=== PATIENT | female | born 1950 | race Caucasian/White ===

== ENCOUNTER 2017-06-17 08:43 | Emergency (ER) | payer MEDICARE, SELFPAY ==
[2017-06-17 08:50] VITALS: BP 125/74; PULSE 80; RESP 18; TEMP 36.5; O2SAT 95; BMI 30.2
--- NOTE | 2017-06-17 09:04 | CT_ITS ---
CT abdomen pelvis wo con COMPARISON: CT scan the abdomen 11/11/2015 HISTORY: Right flank pain TECHNIQUE: Multiaxial scans obtained from hemidiaphragms to the pelvic floor and were performed without IV or oral contrast. Sagittal and coronal reformats were evaluated as well. FINDINGS: The lower lung [place] are clear. Liver spleen stomach pancreas and gallbladder appear grossly normal. There are couple of calcifications within the spleen likely granulomas. The adrenal glands are normal. The kidneys are normal in size and there are no calculi and is no obstructive uropathy of either kidney. There is prominent diffuse arteriosclerotic calcification of the abdominal aorta and proximal iliac arteries but there is no aneurysm. Small bowel appears normal. The appendix is normal caliber and retrocecal in location. There is moderate stool in ascending transverse and proximal descending colon. There is prominent diverticulosis of the sigmoid colon without evidence of diverticulitis. The uterus is small and in the midline. Urinary bladder is grossly normal. There is no free fluid in the pelvis. There are mild degenerative changes of the thoracolumbar junction. IMPRESSION: 1. No evidence of renal or ureteral calculi 2. Mild diffuse diverticulosis of sigmoid colon without diverticulitis
--- NOTE | 2017-06-17 09:12 | HMH.EDABDPAI ---
ED Disposition Clinical Impression: Back pain Qualifiers: Back pain location: low back pain Chronicity: unspecified Back pain laterality: right Sciatica presence: without sciatica Qualified Code(s): M54.5 - Low back pain UTI (urinary tract infection) Qualifiers: Urinary tract infection type: site unspecified Hematuria presence: with hematuria Qualified Code(s): N39.0 - Urinary tract infection, site not specified; R31.9 - Hematuria, unspecified Disposition: Home, Self-Care Condition on Discharge: Good Instructions: DI for Low Back Pain Prescriptions: Ketorolac Tromethamine [Toradol 10mg tablet] 10 mg PO Q6H 5 Days #20 tab Nitrofurantoin Monohyd/M-Cryst [Macrobid 100 mg Capsule] 100 mg PO BID #10 cap Referrals: Grace Lawrnece [Primary Care Provider] - - Critical Care Critical Care Time: No Attestation: On , the high probability of a clinically significant, sudden or life threatening deterioration of the following system(s) required my full and direct attention, intervention and personal management. The time I documented below is in addition to time spent performing reported procedures but includes the following listed in this critical care notation. Medical Decision Making - Medical Records Medical records reviewed: Yes: I reviewed the patient's medical records. - Waldemar Inquiry Pt receiving controlled substance: No Waldemar was queried for this patient: No Vital Signs: 06/17/17 08:50 Temperature 97.7 F Temperature Source Oral Pulse Rate [Right Radial] 80 Respiratory Rate 18 Blood Pressure [Right Arm] 125/74 Blood Pressure Mean [Right Arm] 91 02 Sat by Pulse Oximetry 95 Oxygen Delivery Method Room Air - Lab Data Lab results reviewed: Yes: I reviewed the patient's lab results. Lab Results 06/17/17 08:59: Urine Color Yellow, Urine Appearance Clear, Urine pH 5.5, Ur Specific [place] >= 1.030, Urine Protein Negative, Urine Glucose (UA) Negative, Urine Ketones Negative, Urine Blood 1+, Urine Nitrate Negative, Urine Bilirubin Negative, Urine Urobilinogen 0.2, Ur Leukocyte Esterase Negative, Urine RBC None, Urine WBC 3-5, Ur Squamous Epith Cells 5-10, Urine Bacteria 1+ 06/17/17 09:15: WBC 6.4, RBC 4.53, Hgb 12.8, Hct 39.9, MCV 88.2, MCH 28.3, MCHC 32.1, RDW 14.4, Plt Count 266, MPV 6.6 L, Neut % (Auto) 62.3, Lymph % (Auto) 25.9, [place] % (Auto) 5.8, Eos % (Auto) 5.3, Baso % (Auto) 0.7, Neut # (Auto) 4.0, Lymph # (Auto) 1.6, [place] # (Auto) 0.4, Eos # (Auto) 0.3, Baso # (Auto) 0.1 06/17/17 09:15: Sodium 138, Potassium 4.0, Chloride 103, Carbon Dioxide 27, Anion Gap 12.0, BUN 26 H, Creatinine 1.24 H, Estimated Creat Clear 52, Estimated GFR 43 L, Est GFR ( Amer) 52 L, Glucose 130 H, Calcium 8.8, Total Bilirubin 0.3, AST 13 L, ALT 25, Alkaline Phosphatase 125 H, Total Protein 7.9, Albumin 3.6, Globulin 4.3 H, Albumin/Globulin Ratio 0.8 L Result diagrams: 06/17/17 09:15 06/17/17 09:15 Orders (Tests/Meds): ED MEDICATIONS Discontinued Medications Generic Name Dose Route Start Last Admin Trade Name Freq PRN Reason Stop Dose Admin Sodium Chloride 1,000 mls @ 999 mls/hr 06/17/17 09:15 06/17/17 09:12 Sod Chlor 0.9% 1000ml Bag IV 06/17/17 10:15 999 mls/hr .Q1H1M TARA Administration Ketorolac Tromethamine 30 mg 06/17/17 11:13 06/17/17 11:15 Toradol 30mg/Ml Vial IV 06/17/17 11:14 30 mg ONCE ONE Administration Morphine Sulfate 2 mg 06/17/17 09:00 06/17/17 09:11 Morphine 2mg/Ml Syringe IV 06/17/17 09:01 2 mg ONCE ONE Administration Ondansetron HCl 4 mg 06/17/17 09:10 06/17/17 09:11 Zofran 4mg/2ml Vial IV 06/17/17 09:11 4 mg ONCE ONE Administration - CT Data CT Scan: Abdomen (no evidence kidney stone or lesion) Time Received: 12:[address] Reviewed: Yes: I have viewed the radiologist's interpretation Preliminary Findings: Normal/NAD Abdominal Pain HPI - General Chief Complaint: Back Pain/Injury Stated Complaint: Right side back pain Time Seen by
[2017-06-17 09:24] LABS: Microscopic, Urine URINE MICROSCOPIC (MICROSCOPIC)
[2017-06-17 09:25] LABS: Basophils # 0.1 K/mm3 (0-0.2); Basophils % 0.7 % (0.1-2.0); Eosinophils # 0.3 K/mm3 (0.0-0.4); Eosinophils % 5.3 % (0.1-12.0); Hematocrit 39.9 % (37.0-47.0); Hemoglobin 12.8 g/dL (12.2-16.2); Lymphocytes # 1.6 K/mm3 (0.7-4.5); Lymphocytes % 25.9 K/mm3 (10-50); Mean Corpuscular HGB Conc 32.1 g/dL (31.8-35.4); Mean Corpuscular Hemoglobin 28.3 pg (27.0-31.2); Mean Corpuscular Volume 88.2 fl (81-99); Mean Platelet Volume 6.6 fl (7.4-10.4); Monocytes # 0.4 K/mm3 (0.1-1.0); Monocytes % 5.8 % (1.7-9.3); Neutrophils % 62.3 % (37.0-80.0); Platelet Count 266 K/mm3 (142-424); Red Blood Count 4.53 M/mm3 (4.20-5.40); Red Cell Distribution Width 14.4 % (11.5-17.5); White Blood Count 6.4 K/mm3 (4.8-10.8)
[2017-06-17 09:26] LABS: Appearance,Urine CLEAR (Clear); Bilirubin,Urine Negative (Negative); Blood, Urine 1+ (Negative); Color,Urine YELLOW (Yellow); Glucose,Urine (UA) Negative (Negative); Ketones,Urine Negative (Negative); Leukocyte Esterase,Urine Negative (Negative); Nitrate,Urine Negative (Negative); PH,Urine 5.5 (5.0-8.5); Protein,Urine Negative (Negative); Specific Gravity, Urine >= 1.030 (1.005-1.030); Urobilinogen,Urine 0.2 EU/dl (0.2)
[2017-06-17 09:37] LABS: Bacteria,Urine 1+ /lpf
[2017-06-17 09:44] LABS: Alanine Aminotransferase 25 U/L (12-78); Albumin Level 3.6 gm/dL (3.4-5.0); Albumin/Globulin Ratio 0.8 (1.1-1.8); Alkaline Phosphatase 125 U/L (46-116); Aspartate Amino Transferase 13 U/L (15-37); Bilirubin,Total 0.3 mg/dL (0.2-1.0); Blood Urea Nitrogen 26 mg/dL (7-18); Calcium 8.8 mg/dL (8.5-10.1); Carbon Dioxide 27 mmol/L (21.0-32.0); Chloride 103 mmol/L (98-107); Creatinine Clearance Estimated 52 mL/min (0-300); Creatinine,Serum 1.24 mg/dL (0.55-1.02); Estimated Glomerular Filt Rate 43 ml/min (>60); GFR (African American) 52 ML/MIN (>60); Globulin 4.3 gm/dl (1.3-3.2); Glucose 130 mg/dL (74-106); Sodium 138 mmol/L (136-145); Total Protein,Serum 7.9 gm/dL (6.4-8.2)
[2017-06-17 12:30] VITALS: BP 147/76; PULSE 72; RESP 16; TEMP 36.9; O2SAT 99
== END 2017-06-17 12:33 | disposition home or self-care (01) ==
PROVIDERS: Emergency Provider Family Medicine; Family Provider Physician Assistant; PCP Physician Assistant
DX: M54.5 Low back pain (principal); N39.0 Urinary tract infection, site not specified; E11.9 Type 2 diabetes mellitus without complications; Z96.651 Presence of right artificial knee joint; Z79.899 Other long term (current) drug therapy
CPT/HCPCS: 74176; 80053; 81001; 85025; 96365; 96374; 96375; 99283; J2405

== ENCOUNTER → 2017-07-15 10:24 | Outpatient (CLI) | payer MEDICARE, SELFPAY ==
--- NOTE | 2017-07-15 10:29 | XR_ITS ---
XR chest 2V INDICATION: Cough COMPARISON: PA and lateral chest 07/17/2016 FINDINGS: The cardiovascular structures are unremarkable. No mediastinal shift or hilar mass is evident. The lungs are well expanded and clear bilaterally. The costophrenic sulci are sharp. No significant bony anomalies are apparent. There are mild degenerative changes lower thoracic spine. IMPRESSION: Negative chest.
== END ==
PROVIDERS: PCP Physician Assistant; Visit Provider Physician Assistant
DX: R05 Cough (principal)
CPT/HCPCS: 71046

== ENCOUNTER → 2018-02-15 10:05 | Outpatient (CLI) | payer MEDICARE, SELFPAY ==
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
== END ==
PROVIDERS: PCP Physician Assistant; Visit Provider Physician Assistant
DX: R10.84 Generalized abdominal pain (principal); R11.0 Nausea; R19.7 Diarrhea, unspecified; Z87.19 Personal history of other diseases of the digestive system
CPT/HCPCS: 74176

== ENCOUNTER 2019-10-04 21:59 | Emergency (ER) | payer MEDICARE, SELFPAY ==
[2019-10-04 22:00] VITALS: BP 132/74; PULSE 100; RESP 16; TEMP 36.8; O2SAT 98
[2019-10-04 22:08] VITALS: BMI 28.2
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
[2019-10-04 22:17] LABS: Microscopic, Urine URINE MICROSCOPIC (MICROSCOPIC)
[2019-10-04 22:22] LABS: Appearance,Urine CLEAR (Clear); Bilirubin,Urine Negative (Negative); Blood, Urine 1+ (Negative); Color,Urine YELLOW (Yellow); Glucose,Urine (UA) Negative (Negative); Ketones,Urine TRACE (Negative); Leukocyte Esterase,Urine Negative (Negative); Nitrate,Urine Negative (Negative); PH,Urine 5.5 (5.0-8.5); Protein,Urine 2+ (Negative); Specific Gravity, Urine >= 1.030 (1.005-1.030); Urobilinogen,Urine 0.2 EU/dl (0.2)
[2019-10-04 22:22] LABS: Basophils # 0.1 K/mm3 (0-0.2); Basophils % 0.5 % (0.1-2.0); Chloride 106 mmol/L (98-107); Eosinophils # 0.4 K/mm3 (0.0-0.4); Hematocrit 36.3 % (37.0-47.0); Hemoglobin 12.5 g/dL (12.2-16.2); Lymphocytes # 1.9 K/mm3 (0.7-4.5); Lymphocytes % 22.2 % (10-50); Mean Corpuscular HGB Conc 34.4 g/dL (31.8-35.4); Mean Corpuscular Hemoglobin 28.7 pg (27.0-31.2); Mean Corpuscular Volume 83.4 fl (81-99); Monocytes # 0.4 K/mm3 (0.1-1.0); Monocytes % 4.6 % (1.7-9.3); Neutrophils % 68.6 % (37.0-80.0); Platelet Count 265 K/mm3 (142-424); Potassium 4.2 mmoL/L (3.5-5.1); Red Blood Count 4.35 M/mm3 (4.20-5.40); Red Cell Distribution Width 14.8 % (11.5-17.5); Sodium 137 mmol/L (136-145); White Blood Count 8.7 K/mm3 (4.8-10.8)
[2019-10-04 22:25] LABS: Alanine Aminotransferase 32 U/L (12-78); Albumin Level 4.4 g/dl (3.5-5.0); Albumin/Globulin Ratio 1.4 (1.1-1.8); Alkaline Phosphatase 130 U/L (38-126); Anion Gap 11.2 mEq/L (5-15); Aspartate Amino Transferase 34 U/L (14-36); Bilirubin,Total 0.4 mg/dl (0.2-1.3); Blood Urea Nitrogen 27 mg/dl (7-17); Calcium 9.7 mg/dl (8.4-10.2); Carbon Dioxide 24 mmol/L (22.0-30.0); Creatinine Clearance Estimated 55 mL/min (50-200); Estimated Glomerular Filt Rate 44 ml/min (>60); GFR (African American) 54 ML/MIN (>60); Globulin 3.2 g/dL (1.3-3.2); Glucose 191 mg/dl (74-100); Total Protein,Serum 7.6 g/dl (6.3-8.2)
[2019-10-04 22:30] VITALS: BP 134/88; PULSE 105; RESP 18; O2SAT 98
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
[2019-10-04 23:01] LABS: Bacteria,Urine Trace /lpf; WBC,Urine Occasional #/hpf (0-3)
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
[2019-10-04 23:53] VITALS: BP 124/58; PULSE 81; RESP 15; O2SAT 99
[2019-10-05 00:30] VITALS: BP 128/56; PULSE 82; RESP 15; TEMP 36.8; O2SAT 99
[2019-11-02 09:45] LABS: POC Glucose,Bedside 182 (70-110)
== END 2019-10-05 00:37 | disposition home or self-care (01) ==
PROVIDERS: Emergency Provider Emergency Medicine
DX: S00.03XA Contusion of scalp, initial encounter (principal); S81.811A Laceration without foreign body, right lower leg, initial encounter; V37.0XXA Driver of three-wheeled motor vehicle injured in collision with fixed or stationary object in nontraffic accident, initial encounter; Y92.89 Other specified places as the place of occurrence of the external cause; Z23 Encounter for immunization; N28.9 Disorder of kidney and ureter, unspecified; Z88.0 Allergy status to penicillin; Z88.2 Allergy status to sulfonamides; Z88.5 Allergy status to narcotic agent
CPT/HCPCS: 12001; 70450; 70486; 71045; 71250; 72125; 72170; 73590; 74176; 80053; 81001; 82962; 85025; 85730; 90471; 90714; 96365; 96366; 96372; 96374; 96375; 99282

== ENCOUNTER → 2020-07-16 10:42 | Outpatient (CLI) | payer MEDICARE, SELFPAY ==
[2020-07-16 12:00] LABS: Coronavirus 19 IgG Antibody Positive (Negative); Coronavirus 19 IgM Antibody Negative (Negative)
== END ==
PROVIDERS: Visit Provider Internal Medicine Gastroenterology
DX: Z01.812 Encounter for preprocedural laboratory examination (principal); Z20.822 Contact with and (suspected) exposure to COVID-19; Z12.11 Encounter for screening for malignant neoplasm of colon
CPT/HCPCS: 36415; 86328

== ENCOUNTER 2020-07-18 10:26 | Day surgery (SDC) | payer MEDICARE, SELFPAY ==
[2020-07-15 09:36] VITALS: BMI 30.2
[2020-07-18] VITALS (7 sets, daily range): BP systolic 112–153; BP diastolic 54–94; PULSE 58–74; RESP 16–18; TEMP 36.1–36.4; O2SAT 90–100
--- NOTE | 2020-07-18 13:05 | HMH.PROC ---
[facility] Procedure Note Procedure Note:: Colonoscopy Procedure Report: Colonoscopy with cold snare polypectomy Endoscopist: Wallace Remy II, MD Referring physician: Penny Arevalo MD Date of Procedure: July 18, 2020 Equipment: Olympus 190 variable stiffness pediatric colonoscope Sedation: MAC sedation Indication: Mrs. Shaffer is a 69-year-old female who is here for diagnostic colonoscopy secondary to a positive Cologuard. She did have a colonoscopy with md more than 10 years ago. She reports no abdominal pain, weight loss, change in her bowel habits or rectal bleeding. She reports no family history of colon cancer. Procedure: Prior to the procedure, a history and physical exam was performed, and patient's medications and allergies were reviewed. The risks, benefits and alternatives of the sedation and procedure were discussed with the patient. All questions were answered and informed consent was obtained. The patient was brought to the procedure room. Patient identification and proposed procedure were verified by the physician and the nurse. The patient was placed in a left lateral decubitus position and the scope was passed under direct vision. Throughout the procedure, the patient's blood pressure, pulse, and oxygen saturations were monitored continuously. The colonoscopy was accomplished without difficulty. The patient tolerated the procedure well. Findings: On digital rectal examination there was normal rectal tone. There were no external hemorrhoids. The colonoscope was introduced through the anal canal to the rectum and advanced to the cecum. The ileocecal valve and appendiceal orifice were identified. The scope was advanced a short distance into the ileum which appeared grossly normal. The scope was then withdrawn into the colon. There were 3 colon polyps (descending x1 (6 mm) and rectum x2 (3 and 6 mm)) which were all removed via cold snare polypectomy. The remaining cecum, ascending and transverse colon and mucosa were grossly normal. There were scattered extensive diverticuli throughout the descending and sigmoid colon (LEFT colon). There was some pericolonic adhesions/fibrosis around the sigmoid colon. The rectum itself was normal. Upon retroflexion within the rectum there were grade 1-2 internal hemorrhoids. The preparation was good throughout with [place]ia Preparation Score of 8 out of 9. The cecal time was 17 minutes. Impression: 1. Colonic polyps x3 2. Extensive left-sided diverticulosis with evidence of sigmoid pericolonic adhesions 3. Grade 1-2 internal hemorrhoids Plan: I will follow up the polyp histology. If these are all adenomatous polyps, I would recommend repeat surveillance colonoscopy again in 5 years. I will advise dietary measures and fiber regimen.
--- NOTE | 2020-07-18 15:31 | P.PN_ITS ---
[facility] Anesthesia Checklist - Patient Identification Patient Identification: Arm Band - Structural Data Admitted From: Home Planned Operative Procedure/s: Colonoscopy Consent for Planned Operative Procedure(s) Verified: Yes Verified Documents: Surgical Consent, History and Physical - NPO Status Verified Time NPO: 00:00 - Airway Assessment C-Spine Mobility Assessed: Yes TMJ Mobility Assessed: Yes Dentition: Good Dentition - Neurological Assessment Level of Consciousness: Awake, Alert - Anesthesia Plan Anesthesia Risk discussed: Yes Anesthesia Plan: Verified ASA Class: III Anesthesia Type: MAC [facility] History Medical History: Reports:: Diabetes Mellitus Type 2 Denies:: Cancer, Diabetes Mellitus Type 1, Internal Pacemaker, MRSA, Seizures *Have you ever received a pneumonia vaccine?: Yes *Have you received a flu vaccine this season?: Yes Anesthesia experience/problems:: None Laterality Cases: Right: Total Knee Replacement, Bilateral: Carpal Tunnel Release Other Surgeries: No: Pacemaker Amputation: No Fractures: No - *Social History Last grade of school completed: High school graduate Alcohol Intake: current Substance Use Type: denies use *Occupational Status:: retired Housing: house Household Members: spouse *Travel in the last 8 weeks: None Family Hx:: Cancer, Coronary Artery Disease, Diabetes
[2020-07-18 15:54] LABS: POC Glucose,Bedside 104 (70-110)
== END 2020-07-18 13:50 | disposition home or self-care (01) ==
LOC: OUTP 10:27
PROVIDERS: PCP Family Medicine; Visit Provider Internal Medicine Gastroenterology
PROC: 0DJD8ZZ Inspection of Lower Intestinal Tract, Via Natural or Artificial Opening Endoscopic (ICD-10-PCS; CPT 45378; principal; 2020-07-18 11:30)
DX: K63.5 Polyp of colon (principal); K62.1 Rectal polyp; K57.30 Diverticulosis of large intestine without perforation or abscess without bleeding; K64.0 First degree hemorrhoids; K66.0 Peritoneal adhesions (postprocedural) (postinfection)
CPT/HCPCS: 45385; 82962; 88300; 88305

== ENCOUNTER 2023-01-13 11:00 | Outpatient (RCR) | payer MEDICARE, SELFPAY | END 2023-02-01 10:26 | disposition home or self-care (01) | LOC: PT 11:00 | PROVIDERS: PCP Family Medicine; Visit Provider Orthopaedic Surgery Adult Reconstructive Orthopaedic Surgery | DX: M17.12 Unilateral primary osteoarthritis, left knee (principal); Z96.652 Presence of left artificial knee joint | CPT/HCPCS: 97010; 97014; 97110; 97112; 97140; 97163; 97530; G0283 ==

== ENCOUNTER 2024-01-03 11:26 | Outpatient (CLI) | payer MEDICARE, SELFPAY | END 2024-01-03 23:59 | disposition home or self-care (01) | LOC: LAB.DROPOF 01-04 11:07 | PROVIDERS: PCP Family Medicine; Visit Provider Family Medicine | DX: N39.0 Urinary tract infection, site not specified (principal) | CPT/HCPCS: 87086; 87088; 87186 ==

== ENCOUNTER 2024-01-16 11:00 | Outpatient (RCR) | payer MEDICARE, SELFPAY | END 2024-01-24 16:36 | disposition home or self-care (01) | LOC: PT 11:00 | PROVIDERS: Visit Provider Orthopaedic Surgery Orthopaedic Trauma | DX: M79.661 Pain in right lower leg (principal); S72.401B Unspecified fracture of lower end of right femur, initial encounter for open fracture type I or II; Z98.890 Other specified postprocedural states | CPT/HCPCS: 97110; 97112; 97163; 97164; 97530 ==

== ENCOUNTER 2024-06-18 11:20 | Outpatient (CLI) | payer MEDICARE, SELFPAY ==
[2024-06-18 17:06] LABS: Basophils % 0.6 % (0.1-2.0); Eosinophils # 0.3 K/mm3 (0.0-0.4); Eosinophils % 4.9 % (0.1-12.0); Hematocrit 40.1 % (37.0-47.0); Hemoglobin 12.8 g/dL (12.2-16.2); Lymphocytes # 1.1 K/mm3 (0.7-4.5); Lymphocytes % 20.7 % (10-50); Mean Corpuscular HGB Conc 31.9 g/dL (31.8-35.4); Mean Corpuscular Hemoglobin 28.7 pg (27.0-31.2); Mean Corpuscular Volume 89.9 fl (81-99); Mean Platelet Volume 9.1 fl (7.4-10.4); Monocytes # 0.5 K/mm3 (0.1-1.0); Monocytes % 8.9 % (1.7-9.3); Neutrophils # 3.4 K/mm3 (1.8-7.8); Neutrophils % 64.3 % (37.0-80.0); Platelet Count 210 K/mm3 (142-424); Red Blood Count 4.46 M/mm3 (4.20-5.40); Red Cell Distribution Width 13.8 % (11.5-17.5); White Blood Count 5.3 K/mm3 (4.8-10.8)
[2024-06-18 17:24] LABS: Albumin Level 4.7 g/dl (3.5-5.0); Chloride 105 mmol/L (98-107); Potassium 5.3 mmoL/L (3.5-5.1); Sodium 139 mmol/L (136-145)
[2024-06-18 17:27] LABS: Alanine Aminotransferase 23 U/L (12-78); Albumin/Globulin Ratio 1.7 (1.1-1.8); Alkaline Phosphatase 133 U/L (38-126); Anion Gap 13.3 mEq/L (5-15); Aspartate Amino Transferase 27 U/L (14-36); Bilirubin,Total 0.5 mg/dl (0.2-1.3); Blood Urea Nitrogen 21 mg/dl (7-17); Calcium 9.7 mg/dl (8.4-10.2); Carbon Dioxide 26 mmol/L (22.0-30.0); Cholesterol 185 mg/dl (140-200); Estimated Glomerular Filt Rate 49 ml/min (>60); GFR (African American) 59 ML/MIN (>60); Globulin 2.8 g/dL (1.3-3.2); Glucose 103 mg/dl (74-100); Iron 85 ug/dL (37-170); Total Protein,Serum 7.5 g/dl (6.3-8.2); Triglycerides 204 mg/dl (30-150); VLDL Cholesterol 41 mg/dL (0-40)
[2024-06-18 17:28] LABS: Chol/HDL Ratio 4.5 (1-3.5); HDL Cholesterol 41 mg/dl (40-60)
[2024-06-18 17:33] LABS: Creatinine,Urine Random 109 mg/dL (Not Estab.)
[2024-06-18 17:38] LABS: Microalbumin/Creatinine Ratio 28.9; Total Iron Binding Capacity 399 ug/dL (265-497)
[2024-06-18 17:39] LABS: Direct LDL Cholesterol 101.47 mg/dL (100-129)
[2024-06-18 17:55] LABS: Hemoglobin A1C 5.5 % (4.0-6.0)
[2024-06-18 18:08] LABS: HIV Combo NEGATIVE (Negative)
[2024-06-18 18:17] LABS: Hepatitis C Ab Qual. W/ RFX NEGATIVE (Negative)
== END 2024-06-18 23:59 | disposition home or self-care (01) ==
LOC: LAB.DROPOF 06-20 08:44
PROVIDERS: PCP Family Medicine; Visit Provider Family Medicine
DX: E11.9 Type 2 diabetes mellitus without complications (principal); Z11.4 Encounter for screening for human immunodeficiency virus [HIV]; Z11.59 Encounter for screening for other viral diseases; D50.9 Iron deficiency anemia, unspecified; E78.5 Hyperlipidemia, unspecified; I10 Essential (primary) hypertension
CPT/HCPCS: 80053; 80061; 82043; 82570; 83036; 83540; 83550; 84443; 85025; 86803; 87389